=== PATIENT | female | born 1960 | race Caucasian/White ===

== ENCOUNTER 2023-10-24 10:19 | Inpatient (IN) | payer OTHER, SELFPAY ==
[2023-10-24] VITALS (10 sets, daily range): BP systolic 120–160; BP diastolic 74–88; PULSE 63–80; RESP 16–18; TEMP 36.8–37.6; O2SAT 95–100; BMI 45.2
--- NOTE | 2023-10-24 09:41 | NURSING ---
pt arrived to unit, to bathroom to change into gown had first chlorahex bath then OR charge called for patient. escorted to AC by ALFONSO
[2023-10-24] MEDS: Lactated Ringers 1,000 ML 15 ML IV (09:45)
--- NOTE | 2023-10-24 10:13 | HP.PCM_ITS ---
HPI - General General Date of Admission: 10/24/23 Date of Service: 10/24/23 Chief Complaint: Right obstructing kidney stone HPI Narrative EDGAR HUITRON, is a 63 F who presents to my office with nausea vomiting she has an obstructing stone in the right proximal ureter she comes from outside hospital she could not be seen sooner at outside hospital so she transferred her care here today working to get a surgery put a stent in on the right side deliver alleviate the obstruction and hydration for the D hydration and vomiting. [facility] Medical History Anxiety Hypertension OG on CPAP Home Medications bupropion HCl 150 mg tablet,12 hr sustained-release 150 mg PO DAILY 10/24/23 [History Last Taken Unknown] escitalopram oxalate 10 mg tablet 10 mg PO DAILY 10/24/23 [History Last Taken Unknown] naproxen 500 mg tablet 500 mg PO BID 10/24/23 [History Last Taken 10/23/23] olmesartan 40 mg tablet 40 mg PO DAILY 10/24/23 [History Last Taken 10/24/23] oxycodone-acetaminophen 5 mg-325 mg tablet 1 tab PO Q6H PRN PRN pain 10/24/23 [History Last Taken Unknown] tamsulosin 0.4 mg capsule 0.4 mg PO DAILY 10/24/23 [History Last Taken Unknown] Allergy/AdvReac Type Severity Reaction Status Date / Time Penicillins Allergy Severe cardiac Verified 10/24/23 09:58 Sulfa (Sulfonamide AdvReac Unknown Other Verified 10/24/23 09:58 Antibiotics) codeine AdvReac Vomiting Verified 10/24/23 09:58 erythromycin base AdvReac rash Verified 10/24/23 09:58 ROS Constitutional Constitutional: Denies chills, fever(s) or malaise Eyes Eyes: Denies blurry vision or change in vision ENT HEENT: Reports none Cardiovascular Cardiovascular: Denies chest pain or palpitations Respiratory/Chest Respiratory/Chest: Denies cough or shortness of breath with exertion Gastrointestinal Gastrointestinal: Denies abdominal pain, constipation or diarrhea Musculoskeletal Musculoskeletal: Denies back pain, joint stiffness or joint swelling Integumentary Integumentary: Denies dry skin, jaundice, lesions or rash Neurologic Neurologic: Denies confusion, syncope or weakness Psychiatric Psychiatric: Reports none; Denies anxiety or depression Endocrine Endocrinology: Denies excessive sweating, fatigue or flushing Hematologic/Lymphatic Hematologic/Lymphatic: Denies anemia, easy bleeding or easy bruising Vital Signs Vital Signs Vital Signs: 10/24/23 09:36 Temperature 98.3 F Temperature Source Temporal Pulse Rate 80 Respiratory Rate 18 Blood Pressure 155/88 H Blood Pressure Mean 110 Blood Pressure Source Monitor Blood Pressure Position Semi-Fowlers Blood Pressure Location Left Arm Pulse Ox 98 Oxygen Delivery Method Room Air Weight Weight: 135.034 kg Body Mass Index (BMI) 45.2 Physical Exam Const alert and oriented x3 General Appearance: cooperative HEENT normocephalic and head/scalp atraumatic Eyes PERRL and EOMs intact bilaterally Neck supple, no JVD and no carotid bruits Resp normal respiratory effort, normal air movement and clear to auscultation bilaterally Cardio regular rate and no murmurs GI normal to inspection, nondistended, normoactive bowel sounds and soft to palpation Extremity normal capillary refill General Extremity: no tenderness to palpation of joints or extremities; Negative for edema Skin no rashes or lesions noted and no wounds General Skin Exam: no breakdown Neuro CN's II-XII intact bilaterally Psych affect normal Appearance: appropriate Assessment & Plan Assessment/Plan (1) Right ureteral calculus: PLAN: Patient is was admitted for pain control for kidney stone and plan to do cystoscopy stent placement today
[2023-10-24] MEDS: Cefazolin 2 GM in 0.9% Normal Saline (100mL Bag) 100 ML IV (10:16)
[2023-10-24] MEDS: Lidocaine Jelly 2% 20 ML Syringe (URO-JET) 1 APPLIC (10:30)
--- NOTE | 2023-10-24 10:35 | PCM.OPRPT ---
Report of Operation Date of Procedure: 10/24/23 Pre-Operative Diagnosis: Right obstructing kidney stone and right hydronephrosis Post-Operative Diagnosis: The same Surgery/Procedure Performed:: Cystoscopy right retrograde pyelogram and right stent placement Description of Surgical Findings:: Patient was taken back to the operating room after induction of general anesthesia, the patient was placed in dorsolithotomy position. The urethra and genitals were prepped and draped in usual sterile fashion. Using a 21 Macedonian rigid cystourethroscope the entire length of the urethra was normal then went into the bladder. Identified the trigone the left and right ureteral orifice. I then cannulated the Right ureteral orifice and advanced a wire up into the kidney. I then backloaded a 5 Macedonian open ended catheter over the wire and injected contrast to delineate the anatomy. After the retrograde was performed I then used fluoroscopic images and guidance to advanced a wire up into the kidney and over the 0.038 glidewire I advanced a 6 Macedonian by 26 cm double pigtail stent. I then pulled the 0.038 Glidewire off and the stent coiled in the kidney bladder good position. The bladder was then drained. We confirmed the position of the stent by fluoroscopy. Patient anesthetic was reversed and was taken back to the PACU in good condition. Surgeon: Demian Montes Type of Anesthesia: MAC and Topical Anesth Admit VTE Documentation VTE Present on Admission: No VTE Mechan Device Prophylaxis: SCD's VTE Pharm Prophylaxis ordered?: No
[2023-10-24] MEDS: 0.9% Normal Saline (1000mL) 1,000 ML 125 ML IV ×2 (11:41→20:00)
[2023-10-24] MEDS: Oxycodone/Apap 5/325 Tablet PO (11:53)
[2023-10-24] MEDS: Naproxen 500 MG Tablet PO (17:33)
--- NOTE | 2023-10-24 20:36 | CPS ---
pt wears cpap at home-has no one to bring own in- will wear 2 l/m via nc at hs
[2023-10-24] MEDS: Ciprofloxacin 400 MG/200 ML BAG 200 MG IV (21:43)
[2023-10-24] MEDS: Docusate Sodium 100 MG Capsule 200 MG PO (21:45)
[2023-10-25] VITALS (8 sets, daily range): BP systolic 126–158; BP diastolic 68–90; PULSE 55–74; RESP 13–18; TEMP 36.5–37.4; O2SAT 96–99
[2023-10-25] MEDS: 0.9% Normal Saline (1000mL) 1,000 ML 125 ML IV ×3 (04:57→21:42)
[2023-10-25 07:11] LABS: Hematocrit 34.1 % (37-47); Hemoglobin 10.9 g/dL (12.0-15.0); Mean Corpuscular Hgb 28.2 pg (27.0-32.0); Mean Corpuscular Volume 88.1 fL (81-99); Mean Platelet Vol. 9.6 fl (6.2-12.0); Platelet Count 199 K/mm3 (150-450); RBC Distribution Width CV 12.5 % (11.6-14.6); RBC Distribution Width SD 40.5 fl (35.1-43.9); Red Blood Count 3.87 M/mm3 (4.2-5.4); White Blood Count 7.5 K/mm3 (4.4-11.0)
--- NOTE | 2023-10-25 07:23 | PCM.PN.GU ---
Subjective Subjective s/p stent doing better. plan to take to surgery tomorrow to laser stone. Objective Data Objective Data Vital Signs: Vital Signs Temp Pulse Resp BP Pulse Ox O2 Del Method O2 Flow Rate 98.6 F 67 18 146/87 H 99 Nasal Cannula 2 10/25/23 04:58 10/25/23 04:58 10/25/23 04:58 10/25/23 04:58 10/25/23 04:58 10/25/23 04:58 10/25/23 04:58 Oxygen Flow Rate (L/min) 2 Oxygen Delivery Method Nasal Cannula Weight: 135.034 kg Body Mass Index (BMI) 45.2 Intake & Output: Intake and Output for Last 24 Hours 10/23/23 10/24/23 10/25/23 23:59 23:59 23:59 Intake Total 1855.67 / 1855.67 779.17 / 779.17 Output Total 600 / 600 1200 / 1200 Balance 1255.67 / 1255.67 -420.83 / -420.83 Lab / Micro Data 10/25/23 06:39 10/25/23 06:39 Labs: Laboratory Results - last 24 hr 10/25/23 06:39: WBC 7.5, RBC 3.87 L, Hgb 10.9 L, Hct 34.1 L, MCV 88.1, MCH 28.2, MCHC 32.0, RDW Std Deviation 40.5, RDW Coeff of Clint 12.5, Plt Count 199, MPV 9.6
[2023-10-25] MEDS: Naproxen 500 MG Tablet PO ×2 (07:46→16:38)
[2023-10-25 07:49] LABS: Anion Gap 5 (5-15); BUN 14 mg/dL (7-18); BUN/Creat Ratio 13.7 RATIO (10-20); Calcium,Total 8.8 mg/dL (8.5-10.1); Chloride 109 mmol/L (98-107); Creatinine, Serum 1.02 mg/dL (0.55-1.02); EST Glomerular Filtration Rate 58 mL/min (>60); Est Glom Filt Rate - Afr Amer 70 mL/min (>60); Estimated Creatinine Clearance 81.24 ml/min; Glucose 173 mg/dL (74-106); Potassium 3.8 mmol/L (3.5-5.1); Sodium Level 140 mmol/L (136-145)
[2023-10-25] MEDS: Ciprofloxacin 400 MG/200 ML BAG 200 MG IV (09:51)
[2023-10-25] MEDS: Losartan Potassium 100 MG Tablet PO (09:52)
[2023-10-25] MEDS: Escitalopram Oxalate 10 MG Tablet PO (09:52)
[2023-10-25] MEDS: Tamsulosin HCl 0.4 MG Capsule PO (09:52)
[2023-10-25] MEDS: Docusate Sodium 100 MG Capsule 200 MG PO ×2 (09:52→21:42)
[2023-10-25] MEDS: buPROPion (SR) 150 MG Tablet.SA PO (09:52)
[2023-10-25] MEDS: Oxycodone/Apap 5/325 Tablet PO (21:08)
[2023-10-26] VITALS (11 sets, daily range): BP systolic 138–162; BP diastolic 74–107; PULSE 58–97; RESP 14–18; TEMP 36.2–37.3; O2SAT 91–98; BMI 45.2
[2023-10-26] MEDS: 0.9% Normal Saline (1000mL) 1,000 ML 125 ML IV (04:32)
[2023-10-26 04:52] LABS: Hematocrit 33.2 % (37-47); Hemoglobin 11.7 g/dL (12.0-15.0); Mean Corp Hgb Conc 35.2 g/dL (32-36); Mean Corpuscular Hgb 30.7 pg (27.0-32.0); Mean Corpuscular Volume 87.1 fL (81-99); Mean Platelet Vol. 10.4 fl (6.2-12.0); Platelet Count 238 K/mm3 (150-450); RBC Distribution Width CV 12.7 % (11.6-14.6); RBC Distribution Width SD 40.4 fl (35.1-43.9); Red Blood Count 3.81 M/mm3 (4.2-5.4); White Blood Count 7.3 K/mm3 (4.4-11.0)
[2023-10-26 05:14] LABS: Anion Gap 4 (5-15); BUN 13 mg/dL (7-18); BUN/Creat Ratio 14.3 RATIO (10-20); Calcium,Total 8.6 mg/dL (8.5-10.1); Chloride 110 mmol/L (98-107); Creatinine, Serum 0.91 mg/dL (0.55-1.02); EST Glomerular Filtration Rate 66 mL/min (>60); Est Glom Filt Rate - Afr Amer 80 mL/min (>60); Estimated Creatinine Clearance 91.06 ml/min; Glucose 180 mg/dL (74-106); Potassium 3.6 mmol/L (3.5-5.1); Sodium Level 140 mmol/L (136-145)
--- NOTE | 2023-10-26 06:00 | EKG12_ITS ---
Test Reason : AM EKG Blood Pressure : / mmHG Vent. Rate : 059 BPM Atrial Rate : 059 BPM P-R Int : 162 ms QRS Dur : 088 ms QT Int : 402 ms P-R-T Axes : 090 038 049 degrees QTc Int : 397 ms Sinus bradycardia Low voltage QRS Borderline ECG No previous ECGs available Confirmed by PHILLIP DOOLEY, SUZIE ([id number]), communications editor KOSTA MITTAL ([id number]) on 10/26/2023 9:21:26 AM Referred By: Demian Montes Confirmed By:SUZIE FISHER MD
--- NOTE | 2023-10-26 09:43 | CASEMGMT ---
JOYCE HART Assessment: Face to Face with pt for initial transition planning/care coordination assessment. JOYCE HART introduced self and role at [facility], pt voices understanding and consents to assessment. Pt is A&O x4 and answers all questions appropriately at this time. Pt sitting up in bed in no distress with friend Maria R at bedside. Pt agreeable to assessment with friend present. Care providers, pharmacy, and demographics verified/updated. Admitting Dx: kidney stone PCP:Dagmar Naranjo NP Specialists:Chiropractor, Preferred Pharmacy: [facility] Retail Insurance: [employer] Prescription Benefit: yes LNOK: Ladonna Leonard, sister Living Arrangements: Pt lives with Maria R in a single story home with 4-5 steps to enter with a rail. Pt reports she is I in ADL's and denies concerns at home. Transportation: Pt drives self and denies concerns with transportation. DME:CPAP, shower chair built in. Pt has DME but does not use: walker, cane, [facility] HHC/SNF: Denies hx of Pt states no concerns with going home at time of dc. Pt states no further concerns/needs. CM to follow. Advised pt to ask CM if any further question/concerns/needs arise, voices understanding. Pt Goal: Home Plan: Home Samra COOK CM
--- NOTE | 2023-10-26 10:03 | NURSING ---
pt to surgery
[2023-10-26] MEDS: Lactated Ringers 1,000 ML 15 ML IV (10:29)
--- NOTE | 2023-10-26 11:45 | PCM.DC ---
Discharge Instructions Diet Discharge Diet: No restrictions Activity Discharge Activity: Return to Normal Activity and May Not Drive (while taking narcotic pain medications.) Dressing / Incision Call your doctor if you observe: Fever of 101 or Higher Follow Up Care Please Follow Up With: Demian Montes MD When: Call [phone] for an appointment Test Results: Test results from this visit will be discussed in further detail at your follow-up appointment, if applicable. Discharge Plan Admission Admit Date/Time: 10/25/23 12:40 Attending Provider: Demian Montes Primary Care Provider: Dagmar Naranjo Discharge Orders/Prescriptions Prescriptions: No Action bupropion HCl 150 mg tablet sustained-release 12 hr 150 mg PO DAILY oxycodone-acetaminophen 5-325 mg tablet 1 tab PO Q6H PRN PRN (Reason: pain) tamsulosin 0.4 mg capsule 0.4 mg PO DAILY naproxen 500 mg tablet 500 mg PO BID escitalopram oxalate 10 mg tablet 10 mg PO DAILY olmesartan 40 mg tablet 40 mg PO DAILY Referrals / Follow Up: Dagmar Naranjo, NEURODIAGNOSTIC TECH-C [Primary Care Provider] - Disposition Discharge Orders: Discharge Patient (Routine); Ordered 10/26/23 Ordered By: Dr. Demian Montes
--- NOTE | 2023-10-26 11:45 | PCM.OPRPT ---
Report of Operation Date of Procedure: 10/26/23 Pre-Operative Diagnosis: Right kidney stone Surgery/Procedure Performed:: Cystoscopy right ureteroscopy laser lithotripsy of stone and stent placement, balloon dilation, retrograde pyelogram. Description of Surgical Findings:: This is a patient who presents to the hospital for treatment for an obstructing ureter calculi. I discussed with the patient how the surgery would be performed and we reviewed the risks and benefits of the surgery. The risk and benefits include the risk of failure to remove the stone completely and that the patient may need multiple procedures. We discussed the risk of an infection, the risk of bleeding. We discussed the very rare risk of serious complicated injury to the ureter. The patient understands that if the stone is not able to be removed safely that we may abort the procedure and place a stent. After full discussion and all questions address with the patient the consent form was signed the side was marked appropriately and the patient was taken back to the operating room for the procedure. The patient was taken back to the operating room. After induction of anesthesia by the anesthesiology team the patient was placed in dorsolithotomy position. The genitals were prepped and draped in usual sterile fashion. I went into the bladder with a 21 Bulgarian rigid cystourethroscope through the urethra. Upon entering the bladder I inspected the trigone the left and right ureteral orifice and the bladder itself. I then cannulated the Right ureteral orifice and advanced a 0.038 Glidewire up into the kidney. Then over the Glidewire I advanced a 5 Fr Ureteral catheter and performed a retrograde pyelogram with about 10cc of contrast, to delineate the anatomy and identify the stone location. Then a ureteral balloon dilator was advanced over the wire and the distal ureter was balloon dilated with a 12 Fr x 5cm balloon dilator. After 3 minutes of dilating the ureter the balloon was backloaded off the 0.038 glidewire over the 0.038 guidewire I went in with the flexible 7.5fr ureteroscope. I was able to go inside with the 7.5Fr utereroscope and I pulled out the guidewire and then through the ureteroscope I engage the stone in the kidney a 1cm stone, with laser lithotripsy using a 270miron laser fiber with energy setting of 6 Hertz and 0.6 J until the stone was lasered into tiny little pieces that should pass on their own. A retrograde pyelogram was performed with 10cc of contrast and no extravasation of contrast or perforation was identified in the ureter there was some mild irritation of the ureter where the stone was located. I then backed out of the ureter left the wire in place and then over the 0.038 guidewire I placed a double coiled pigtail ureteral stent. The ureteral stent was advanced over the 0.038 guidewire under direct fluoroscopic guidance and direct cystoscopic visual guidance, once the stent was in good position I pulled the wire and the stent coiled in the kidney and bladder in good position. I then drained the patient's bladder and the cystoscope was removed and the patient was taken back to the recovery room in good position. The patient was given discharge instructions to call the office for instructions on when to come to the office to have the stent removed. Surgeon: Demian Montes Type of Anesthesia: General Drains: stent right Estimated Blood Loss (mL): 0 Admit VTE Documentation VTE Present on Admission: No VTE Mechan Device Prophylaxis: SCD's VTE Pharm Prophylaxis ordered?: No
--- NOTE | 2023-10-26 11:47 | PCM.DC.SUM ---
Providers Date of Admission: 10/25/23 Date of Discharge: 10/26/23 Primary Care Physician: TAYA. Dagmar Naranjo, TAYA-C Reason For Visit: KIDNEY STONE Diagnosis Discharge Diagnosis (1) Right ureteral calculus: Status: Acute Code(s): N20.1 - Calculus of ureter Plan: Patient is was admitted for pain control for kidney stone and plan to do cystoscopy stent placement today Medications at Discharge Home Medications bupropion HCl 150 mg tablet,12 hr sustained-release 150 mg PO DAILY 10/24/23 escitalopram oxalate 10 mg tablet 10 mg PO DAILY 10/24/23 naproxen 500 mg tablet 500 mg PO BID 10/24/23 olmesartan 40 mg tablet 40 mg PO DAILY 10/24/23 oxycodone-acetaminophen 5 mg-325 mg tablet 1 tab PO Q6H PRN PRN pain 10/24/23 tamsulosin 0.4 mg capsule 0.4 mg PO DAILY 10/24/23 Hospital Course Summary of Care Provided Minutes Spent on Discharge: 30 Hospital Course: Patient was admitted to the hospital underwent cystoscopy and stent placement to alleviate obstructing stone she was then taken back to the operating room a day and a half later for ureteroscopy and laser lithotripsy the stone was lasered completely I placed a stent she will be discharged home today and follow-up in my office next week to have the stent removed Weight / BMI Weight Weight: 135.034 kg Body Mass Index (BMI) 45.2 ABG / Lab / Microbiology Data 10/26/23 04:25 10/26/23 04:25 Laboratory: Laboratory Results - last 24 hr 10/26/23 04:25: WBC 7.3, RBC 3.81 L, Hgb 11.7 L, Hct 33.2 L, MCV 87.1, MCH 30.7, MCHC 35.2 D, RDW Std Deviation 40.4, RDW Coeff of Clint 12.7, Plt Count 238, MPV 10.4, Sodium 140, Potassium 3.6, Chloride 110 H, Carbon Dioxide 26.0, Anion Gap 4 L, BUN 13, Creatinine 0.91, Estim Creat Clear Calc 91.06, Est GFR (MDRD) Af Amer 80, Est GFR (MDRD) Non-Af 66, BUN/Creatinine Ratio 14.3, Glucose 180 H, Calcium 8.6 D/C Instructions Discharge Diet: No restrictions Call your doctor if you observe: Fever of 101 or Higher Please Follow Up With: Demian Montes MD When: Call [phone] for an appointment Meaningful Use Info Meaningful Use Meaningful Use Diagnoses (Choose all that apply): None applicable Ischemic Stroke Statin Dosing Therapy Reference: STATIN DOSE THERAPY REFERENCE: * Patients > 75 years receive moderate or high dose statin therapy. * Patients 75 years or YOUNGER should receive HIGH intensity statin dose unless contraindicated. You will be required to document reason for non-treatment if statin daily dose does not meet guidelines. HIGH DOSE STATIN THERAPY DAILY Atorvastatin > than or = to 40 mg Rosuvastatin > than or = to 20 mg Amlodipine + Atorvastatin > than or = to 2.5/40 mg Ezetimibe + Simvastatin 10/80 mg Simvastatin 80mg Discharge Plan Admission Admit Date/Time: 10/25/23 12:40 Attending Provider: Demian Montes Primary Care Provider: Dagmar Naranjo Discharge Orders/Prescriptions Prescriptions: No Action bupropion HCl 150 mg tablet sustained-release 12 hr 150 mg PO DAILY oxycodone-acetaminophen 5-325 mg tablet 1 tab PO Q6H PRN PRN (Reason: pain) tamsulosin 0.4 mg capsule 0.4 mg PO DAILY naproxen 500 mg tablet 500 mg PO BID escitalopram oxalate 10 mg tablet 10 mg PO DAILY olmesartan 40 mg tablet 40 mg PO DAILY Referrals / Follow Up: Dagmar Naranjo, STUD MASTER/MISTRESS-C [Primary Care Provider] - Disposition Discharge Orders: Discharge Patient (Routine); Ordered 10/26/23 Ordered By: Dr. Demian Montes
[2023-10-26] MEDS: Losartan Potassium 100 MG Tablet PO (12:57)
[2023-10-26] MEDS: Tamsulosin HCl 0.4 MG Capsule PO (12:57)
[2023-10-26] MEDS: buPROPion (SR) 150 MG Tablet.SA PO (12:57)
[2023-10-26] MEDS: Escitalopram Oxalate 10 MG Tablet PO (12:57)
--- NOTE | 2023-10-26 14:59 | PHA.DC_ITS ---
Pharmacy [facility] Service has performed discharge medication reconciliation and counseling for this patient. 1. CIPROFLOXACIN 500MG PO BID X 5 DAYS The patient's discharge medication list was reviewed for discrepancies and discrepancies were resolved. The patient was counseled on the following discharge medications and changes in medications for homegoing were reviewed. The Reason for Use, instructions for use, and potential side effects were reviewed for all new medications. The patient's questions regarding all of their medications were answered. The patient was able to verbally demonstrate an understanding of their discharge medications. Medications at Discharge Home Medications bupropion HCl 150 mg tablet,12 hr sustained-release 150 mg PO DAILY 10/24/23 escitalopram oxalate 10 mg tablet 10 mg PO DAILY 10/24/23 naproxen 500 mg tablet 500 mg PO BID 10/24/23 olmesartan 40 mg tablet 40 mg PO DAILY 10/24/23 oxycodone-acetaminophen 5 mg-325 mg tablet 1 tab PO Q6H PRN PRN pain 10/24/23 tamsulosin 0.4 mg capsule 0.4 mg PO DAILY 10/24/23 ciprofloxacin HCl 500 mg tablet (Cipro) 500 mg PO BID #10 tabs 10/26/23
--- NOTE | 2023-10-26 16:17 | NURSING ---
All documentation by student life vice president, Keyon Carpio, reviewed by pharmacy technician instructor, Micaela LOMELI, RN.
== END 2023-10-26 15:38 | disposition home or self-care (01) | DRG 661 ==
PROVIDERS: Admitting Provider Urology; PCP Nurse Practitioner Family; Referring Provider Urology; Visit Provider Urology
PROC: 0T768DZ Dilation of Right Ureter with Intraluminal Device, Via Natural or Artificial Opening Endoscopic (ICD-10-PCS; CPT 52332; principal; 2023-10-24 10:20)
PROC: 0TJ98ZZ Inspection of Ureter, Via Natural or Artificial Opening Endoscopic (ICD-10-PCS; CPT 52352; principal; 2023-10-26 11:20)
DX: N13.2 Hydronephrosis with renal and ureteral calculous obstruction (principal); F41.9 Anxiety disorder, unspecified; I10 Essential (primary) hypertension; G47.33 Obstructive sleep apnea (adult) (pediatric); Z79.899 Other long term (current) drug therapy
CPT/HCPCS: 36415; 76000; 80048; 85027; 93005; 94660; 94762; J7030; J7120; C1769; J0744; J2405